=== PATIENT | male | born 1945 | race Caucasian/White ===

== ENCOUNTER 2017-01-31 13:03 | Inpatient (IN) ==
--- NOTE | 2017-01-31 13:58 | EKG Report ---
Test Performed on : 01/31/2017 1:44:55 PM Test Reason : CHESTPAIN Blood Pressure : / mmHG Vent. Rate : 094 BPM Atrial Rate : 094 BPM P-R Int : 146 ms QRS Dur : 102 ms QT Int : 366 ms P-R-T Axes : 080 -84 077 degrees QTc Int : 457 ms Normal sinus rhythm. Left axis deviation Pulmonary disease pattern Incomplete right bundle branch block Minimal voltage criteria for LVH, may be normal variant Abnormal ECG No previous ECGs available Unconfirmed Result
--- NOTE | 2017-01-31 14:02 | Diag Imaging Result Doc PS360 ---
EXAM: CHEST-2 VIEWS INDICATION: cough TECHNIQUE: 2 views COMPARISON: 08/08/2015 FINDINGS: There is a stable calcified granuloma at the left lung apex. The lungs are grossly clear. There is no discrete pleural fluid collection or pneumothorax. The cardiomediastinal silhouette and central vasculature are grossly unremarkable. IMPRESSION: No evidence of acute pathology by plain radiograph. Electronically signed by José Steward 01/31/2017 2:00 PM
[2017-01-31 14:08] LABS: URINE CULTURE PL NEEDED? NO
[2017-01-31] MEDS ORDERED: NS 1,000 ML IV ONE (14:38)
[2017-01-31 14:39] LABS: BILIRUBIN URINE NEGATIVE (NEGATIVE); CLARITY CLEAR (CLEAR); COLOR YELLOW; GLUCOSE URINE NEGATIVE (NEGATIVE); URINE CAST NONE SEEN /LPF; URINE CRYSTAL TRIPLE PHOS PRESENT /HPF; URINE EPITHELIAL CELLS <10 /HPF (<10); URINE SOURCE CLEAN CATCH; URINE WBC <10 /HPF (<10)
[2017-01-31] MEDS ORDERED: NS 1,000 ML ONE (14:39)
[2017-01-31 14:40] LABS: BLOOD URINE NEGATIVE (NEGATIVE)
[2017-01-31 14:41] LABS: LEUKOCYTES URINE NEGATIVE (NEGATIVE); NITRITE URINE NEGATIVE (NEGATIVE); PROTEIN URINE NEGATIVE (NEGATIVE); UROBILINOGEN URINE NORMAL
[2017-01-31 14:44] LABS: MANUAL DIFF NEEDED? NO
[2017-01-31 14:46] LABS: BASO% 0.9 % (0.0-0.8); EOS# 0.24 X1000 (0.0-0.7); EOS% 2.4 % (0.0-10.0); HEMATOCRIT 47.7 % (42.0-52.0); HEMOGLOBIN 16.2 g/dL (14.0-18.0); IMM GRAN# 0.05 X1000 (0.0-0.04); IMM GRAN% 0.5 % (0.0-0.5); LYMPH# 2.74 X1000 (1.2-3.4); LYMPH% 26.8 % (20.5-51.1); MCH 29.5 PG (27-31); MCV 86.7 FL (81-99); MONO# 1.32 X1000 (0.11-0.59); MONO% 12.9 % (1.7-9.3); MPV 10.9 FL (7.4-10.4); NEUT% 56.5 % (42.2-75.2); PLT 320 X1000 (130-400)
[2017-01-31 15:45] LABS: INR 1.22 (0.86-1.15); PROTIME 16.4 Seconds (12.1-15.5)
[2017-01-31 15:46] LABS: ALBUMIN 3.9 g/dL (3.5-5.0); CALCIUM 10.3 mg/dL (8.8-10.2); MAGNESIUM 2.3 mg/dL (1.5-2.7); POTASSIUM 5.4 mmol/L (3.5-5.1); TOTAL BILIRUBIN 0.4 mg/dL (0.20-1.00); TOTAL PROTEIN 7.7 g/dL (6.3-8.3)
--- NOTE | 2017-01-31 16:50 | Diag Imaging Result Doc PS360 ---
EXAM: CT THORAX/ABD/PELVIS W/O CONT INDICATION: Post op for stage bladder cancer, weak/pain TECHNIQUE: COMPARISON: 08/08/2015 FINDINGS: CHEST: There is moderate pulmonary emphysema with an apical predominance. There are several calcified granulomata bilaterally. There is a small 4 mm nodule in the right middle lobe abutting the minor fissure that is stable indicating a small noncalcified granuloma. There is a 3.7 mm noncalcified nodule at the left lung base that would've been obscured by atelectasis on the previous study. Statistically it very likely represents a tiny noncalcified granuloma as well. If there is clinical concern, consider follow-up CT chest in one year based on Fleischner Society criteria. There is minimal right basilar scarring and/or atelectasis. There are no airspace consolidations, otherwise. There is no pleural fluid collection and no pneumothorax. There are calcified mediastinal and left hilar lymph nodes indicating prior granulomatous disease. The heart is not enlarged. The bony structures of the thorax are intact. ABDOMEN/PELVIS: The liver, gallbladder, spleen, pancreas, adrenal glands, and kidneys are unremarkable. There has been an interval cystectomy with creation of an ileal conduit and right urostomy. There is no evidence of bowel obstruction. The GI tract is essentially unremarkable, otherwise. No focal inflammatory changes, free abdominal gas, or free fluid is appreciated. There are degenerative changes involving the spine. The bony structures of the abdomen and pelvis are grossly intact. IMPRESSION: 1.Moderate pulmonary emphysema. 2.Evidence of prior granulomatous disease and a couple tiny noncalcified nodules bilaterally that are 4 mm or less. Please see above discussion. 3.Interval cystectomy with ileal conduit. 4.Other incidental/nonacute findings detailed above but no definite acute pathology. Electronically signed by José Steward 01/31/2017 4:47 PM
[2017-01-31] MEDS ORDERED: ZOFRAN IV ONE (17:10)
[2017-01-31] MEDS ORDERED: ZOFRAN ONE (17:11)
[2017-01-31] MEDS ORDERED: TYLENOL PO PRN (19:31)
[2017-01-31] MEDS ORDERED: SODIUM CHLORIDE 0.9% INJ PRN (19:32)
[2017-01-31] MEDS ORDERED: PHENERGAN IV PRN (19:32)
[2017-01-31] MEDS ORDERED: SODIUM CHLORIDE 0.9% INJ SCH (19:45)
[2017-01-31] MEDS: NS 1,000 ML IV SCH (20:14)
[2017-01-31] MEDS: PROTONIX IV SCH (20:14)
[2017-02-01] MEDS: ZOFRAN IV PRN ×3 (00:10→20:25)
[2017-02-01 06:22] LABS: HEMATOCRIT 43.8 % (42.0-52.0); HEMOGLOBIN 14.6 g/dL (14.0-18.0); MCH 29.1 PG (27-31); MCHC 33.3 g/dL (33-37); MCV 87.3 FL (81-99); RBC 5.02 XMIL (4.7-6.1)
[2017-02-01 06:49] LABS: AGAP 15; ALBUMIN 3.5 g/dL (3.5-5.0); ALKALINE PHOSPHATASE 85 U/L (32-122); BUN 51 mg/dL (8-22); CALCIUM 9.4 mg/dL (8.8-10.2); CHLORIDE 98 mmol/L (98-107); COSMO 275; GOT 14 U/L (10-34); GPT 15 U/L (10-44); HDL 28 mg/dL (35-55); LDL 105 mg/dL; MAGNESIUM 2.1 mg/dL (1.5-2.7); POTASSIUM 4.1 mmol/L (3.5-5.1); SODIUM 131 mmol/L (136-145); TCO2 18 mmol/L (25-35); TOTAL PROTEIN 6.7 g/dL (6.3-8.3); TRIGLYCERIDES 113 mg/dL (39-160); VLDL 23 mg/dL
[2017-02-01 06:50] LABS: FREE T4 1.37 ng/dL (0.93-1.70)
[2017-02-01] MEDS: HYDROCHLOROTHIAZIDE PO SCH (10:02)
[2017-02-01] MEDS: MIRALAX PO SCH (10:02)
[2017-02-01] MEDS: LOPRESSOR PO SCH ×2 (10:02→20:25)
[2017-02-01] MEDS: ELIQUIS PO SCH ×2 (10:02→20:25)
[2017-02-01] MEDS: PROTONIX IV SCH ×2 (10:02→20:25)
[2017-02-01] MEDS: NS 1,000 ML IV SCH ×2 (11:24→23:46)
[2017-02-01] MEDS: ZOCOR PO SCH (20:25)
[2017-02-02 05:57] LABS: HEMATOCRIT 39.2 % (42.0-52.0); MCH 28.9 PG (27-31); MCHC 33.2 g/dL (33-37); MCV 87.1 FL (81-99); MPV 10.8 FL (7.4-10.4); RBC 4.5 XMIL (4.7-6.1)
[2017-02-02 06:46] LABS: AGAP 12; ALBUMIN 3.5 g/dL (3.5-5.0); ALKALINE PHOSPHATASE 73 U/L (32-122); BUN 31 mg/dL (8-22); CALCIUM 9.1 mg/dL (8.8-10.2); CHLORIDE 102 mmol/L (98-107); COSMO 272; GOT 13 U/L (10-34); GPT 15 U/L (10-44); POTASSIUM 3.5 mmol/L (3.5-5.1); SODIUM 133 mmol/L (136-145); TCO2 19 mmol/L (25-35); TOTAL PROTEIN 6.1 g/dL (6.3-8.3)
[2017-02-02] MEDS: PROTONIX IV SCH ×2 (08:07→20:36)
[2017-02-02] MEDS: ELIQUIS PO SCH ×2 (09:36→20:36)
[2017-02-02] MEDS: HYDROCHLOROTHIAZIDE PO SCH (09:36)
[2017-02-02] MEDS: MIRALAX PO SCH (09:36)
[2017-02-02] MEDS: LOPRESSOR PO SCH ×2 (09:36→20:36)
[2017-02-02] MEDS: ZOCOR PO SCH (20:36)
[2017-02-02] MEDS: NS 1,000 ML IV SCH (20:37)
[2017-02-03 06:25] LABS: MANUAL DIFF NEEDED? NO
[2017-02-03 06:28] LABS: BASO% 1.7 % (0.0-0.8); EOS# 0.33 X1000 (0.0-0.7); EOS% 5.2 % (0.0-10.0); IMM GRAN# 0.05 X1000 (0.0-0.04); IMM GRAN% 0.8 % (0.0-0.5); LYMPH# 2.08 X1000 (1.2-3.4); MCH 29.3 PG (27-31); MCHC 33.3 g/dL (33-37); MONO# 0.96 X1000 (0.11-0.59); MONO% 15.2 % (1.7-9.3); NEUT% 44.1 % (42.2-75.2); PLT 201 X1000 (130-400); RBC 4.09 XMIL (4.7-6.1)
[2017-02-03 06:58] LABS: AGAP 6; ALBUMIN 3.2 g/dL (3.5-5.0); BUN 22 mg/dL (8-22); CALCIUM 8.7 mg/dL (8.8-10.2); CHLORIDE 106 mmol/L (98-107); COSMO 273; POTASSIUM 3.6 mmol/L (3.5-5.1); SODIUM 135 mmol/L (136-145); TCO2 23 mmol/L (25-35)
[2017-02-03] MEDS: HYDROCHLOROTHIAZIDE PO SCH (08:55)
[2017-02-03] MEDS: ELIQUIS PO SCH ×2 (08:55→21:32)
[2017-02-03] MEDS: MIRALAX PO SCH (08:55)
[2017-02-03] MEDS: PROTONIX IV SCH ×2 (08:55→21:32)
[2017-02-03] MEDS: NS 1,000 ML IV SCH ×2 (08:55→21:39)
[2017-02-03] MEDS: LOPRESSOR PO SCH ×3 (08:55→21:32)
[2017-02-03] MEDS: MEGACE LIQUID PO SCH (19:32)
[2017-02-03] MEDS: ZOCOR PO SCH (21:32)
[2017-02-04 06:44] LABS: AGAP 8; ALBUMIN 2.9 g/dL (3.5-5.0); BUN 15 mg/dL (8-22); CALCIUM 8.4 mg/dL (8.8-10.2); CHLORIDE 106 mmol/L (98-107); COSMO 270; POTASSIUM 3.6 mmol/L (3.5-5.1); SODIUM 135 mmol/L (136-145); TCO2 21 mmol/L (25-35)
[2017-02-04] MEDS: MEGACE LIQUID PO SCH ×3 (10:23→16:50)
[2017-02-04] MEDS: HYDROCHLOROTHIAZIDE PO SCH (10:23)
[2017-02-04] MEDS: LOPRESSOR PO SCH ×2 (10:23→21:52)
[2017-02-04] MEDS: PROTONIX IV SCH ×2 (10:23→21:52)
[2017-02-04] MEDS: ELIQUIS PO SCH ×2 (10:23→21:52)
[2017-02-04] MEDS: MIRALAX PO SCH (10:24)
[2017-02-04] MEDS: PERIACTIN PO SCH (16:50)
[2017-02-05] MEDS: PERIACTIN PO SCH ×3 (07:46→16:14)
[2017-02-05] MEDS: MEGACE LIQUID PO SCH ×2 (07:46→16:14)
[2017-02-05] MEDS: PROTONIX IV SCH (07:47)
[2017-02-05] MEDS: HYDROCHLOROTHIAZIDE PO SCH (08:58)
[2017-02-05] MEDS: ELIQUIS PO SCH (08:58)
[2017-02-05] MEDS: LOPRESSOR PO SCH (08:58)
[2017-02-05] MEDS: MIRALAX PO SCH (08:59)
[2017-02-05 15:20] VITALS: BP 110/66
[2017-02-05] MEDS ORDERED: PRILOSEC PO SCH (16:00)
== END 2017-02-05 19:00 | disposition home or self-care (01) ==
LOC: P.ED 13:03 → SUATTDRO 18:42 → P.MEDSURG 18:42
PROVIDERS: ATTEND Family Medicine